=== PATIENT | male | born 1990 | race Caucasian/White ===

== ENCOUNTER 2016-04-09 16:26 | Emergency (ER) | payer OTHER ==
[~2016-04-09] VITALS: Ht 160 cm; Wt 144.3 kg
[2016-04-09] MEDS ORDERED: TOBREX5 ML RIGHT EYE (16:49)
[2016-04-09 17:14] VITALS: BP 136/82
== END 2016-04-09 17:10 | disposition home or self-care (01) ==
LOC: EME 16:26
DX: H10.9 Unspecified conjunctivitis (principal)
CPT/HCPCS: 99281; 99283

== ENCOUNTER 2017-04-24 20:04 | Inpatient (IN) | payer OTHER ==
[~2017-04-24] VITALS: Ht 182.9 cm; Wt 73.2 kg
[~2017-04-24 20:04] MED LIST: TOBREX5 ML RIGHT EYE
[2017-04-24 21:08] LABS: BASOPHIL (%) 0.3 % (0-1); EOSINOPHIL (%) 0.2 % (0-5); HEMATOCRIT 45.3 % (38.0-50.0); HEMOGLOBIN 15.5 G/DL (12.5-16.6); IMMATURE GRANULOCYTE (%) 0.2 % (0.0-0.7); LYMPHOCYTE (%) 9.6 % (15-42); LYMPHOCYTE COUNT 1.2 K/uL (1.0-2.8); MCH 29.8 PG (29.0-34.0); MCHC 34.2 G/DL (30.0-36.0); MCV 87.1 FL (86-99); MONOCYTE COUNT 0.4 K/uL (0-0.8); NEUTROPHIL (%) 86.7 % (45-76); NEUTROPHIL COUNT 10.8 K/uL (1.8-6.4); PLATELET COUNT 193 K/uL (156-360); RBC DIS.WIDTH-CV 12.2 % (11.8-14.6); RBC DIS.WIDTH-SD 38.9 % (39-53); WHITE BLOOD COUNT 12.5 K/uL (4.1-10.2)
[2017-04-24 21:17] LABS: AMYLASE 53 IU/L (1-118); CHLORIDE 104 mEq/L (99-109); POTASSIUM 3.5 mEq/L (3.7-5.4); SODIUM 140 mEq/L (136-147)
[2017-04-24 21:19] LABS: GLUCOSE 124 mg/dL (70-99)
[2017-04-24 21:21] LABS: PTT 20.2 SEC (25-37)
[2017-04-24 21:22] LABS: SERUM ETHYL ALCOHOL < 10 mg/dL
[2017-04-24 21:23] LABS: CREATININE 0.8 mg/dL (0.6-1.3); GFR ESTIMATE (CALCULATED) > 59 mL/min/ (58.99-99999)
[2017-04-24 21:24] LABS: UREA NITROGEN (BUN) 9 mg/dL (9-23)
[2017-04-24 21:26] LABS: INTER. NORMALIZED RATIO 1.1
[2017-04-24 21:26] LABS: LIPASE 20 U/L (1.0-51.0)
[2017-04-24 21:31] LABS: TROP-I INTERPRETATION NEGATIVE; TROPONIN-I < 0.01 ng/mL (0.0-0.30)
[2017-04-24] MEDS ORDERED: LIPITOR20 MG PO (22:54)
[2017-04-24] MEDS ORDERED: ONE DAILY MULT1 EACH PO (22:57)
[2017-04-24 23:20] VITALS: BP 116/82
[2017-04-24 23:21] LABS: APPEARANCE CLEAR ((CLEAR)); BILIRUBIN NEGATIVE; BLOOD NEGATIVE; COLOR COLORLESS ((YELLOW)); GLUCOSE (STRIP) NEGATIVE; KETONES NEGATIVE; LEUKOCYTES NEGATIVE; NITRITE NEGATIVE; PROTEIN (STRIP) NEGATIVE; SPECIFIC GRAVITY 1.017 (1.000-1.030); UCUL ADDED? NO; UROBILINOGEN 0.2 MG/DL (0.2-1.0)
[2017-04-24 23:30] VITALS: BP 118/78
[2017-04-24 23:30] LABS: AMPHETAMINE NEGATIVE (500 ng/mL); BARBITURATES NEGATIVE (200 ng/mL); BENZODIAZEPINES NEGATIVE (150 ng/mL); BUPRENORPHINE NEGATIVE (10 ng/mL); COCAINE NEGATIVE (150 ng/mL); METHADONE NEGATIVE (200 ng/mL); METHAMPHETAMINE NEGATIVE (500 ng/mL); OPIATES (MORPHINE) NEGATIVE (100 ng/mL); OXYCODONE NEGATIVE (100 ng/mL); PHENCYCLIDINE NEGATIVE (25 ng/mL); PROPOXYPHENE NEGATIVE (300 ng/mL); THC CANNABINOIDS NEGATIVE (50 ng/mL); TRICYCLIC ANTIDEPRESSANTS NEGATIVE (300 ng/mL)
[2017-04-25] VITALS (30 sets, daily range): BP systolic 85–133; BP diastolic 54–99
[2017-04-25 00:11] LABS: HDL CHOLESTEROL 38 MG/DL (Desirable>=40); LDL CHOLESTEROL 63 mg/dL (Desirable<100); NON-HDL CHOLESTEROL 94 mg/dL (Desirable<160); TOTAL CHOLESTEROL 132 mg/dL (Desirable<200); TRIGLYCERIDES 157 MG/DL (Normal: <150)
[2017-04-25 05:46] LABS: HEMATOCRIT 44.5 % (38.0-50.0); HEMOGLOBIN 14.6 G/DL (12.5-16.6); MCH 28.9 PG (29.0-34.0); MCHC 32.8 G/DL (30.0-36.0); MCV 87.9 FL (86-99); PLATELET COUNT 205 K/uL (156-360); RBC DIS.WIDTH-CV 12.3 % (11.8-14.6); RBC DIS.WIDTH-SD 39.4 % (39-53); RED BLOOD COUNT 5.06 M/uL (4.00-5.50); WHITE BLOOD COUNT 9.5 K/uL (4.1-10.2)
[2017-04-25 05:50] LABS: INTER. NORMALIZED RATIO 1.1
[2017-04-25 05:52] LABS: PTT 25.8 SEC (25-37)
[2017-04-25 06:18] LABS: CHLORIDE 102 MEQ/L (99-109); CREATININE 0.7 MG/DL (0.6-1.3); GFR ESTIMATE (CALCULATED) > 59 mL/min/ (58.99-99999); GLUCOSE 102 mg/dL (70-99); POTASSIUM 3.6 MEQ/L (3.7-5.4); SODIUM 141 MEQ/L (136-147); UREA NITROGEN (BUN) 11 mg/dL (9-23)
[2017-04-25 10:11] LABS: HEMOGLOBIN A1c (GLYCOHEMOGLOB) 5.3 % (Below 5.7)
[2017-04-26] VITALS (11 sets, daily range): BP systolic 90–121; BP diastolic 51–76
[2017-04-27 03:33] VITALS: BP 107/70
[2017-04-27 08:01] VITALS: BP 111/65
[2017-04-27] MEDS ORDERED: ASPIR 8181 M1 PO (11:51)
== END 2017-04-27 13:20 | disposition home or self-care (01) | DRG 63 ==
LOC: EME 20:04 → EDOF 22:27 → 4WEST 22:27 → ENRESERV 22:28 → 4WEST 23:03 → ENRESERV 04-26 15:19 → 5SOUTH 04-26 17:59
PROVIDERS: Emergency Medicine; Surgery
DX: I63.9 Cerebral infarction, unspecified (principal); E87.6 Hypokalemia; G80.9 Cerebral palsy, unspecified; F79 Unspecified intellectual disabilities; R29.711 NIHSS score 11; R26.9 Unspecified abnormalities of gait and mobility; Q03.1 Atresia of foramina of Magendie and Luschka; Z86.73 Personal history of transient ischemic attack (TIA), and cerebral infarction without residual deficits
CPT/HCPCS: 70450; 70496; 70498; 70551; 80048; 80061; 81003; 82150; 82948; 83036; 83690; 84484; 85025; 85027; 85610; 85730; 86850; 86900; 86901; 87641; 92610 GN; 95819; 99281; 99285; G0480; J1644; J2997; J3480; J7050